=== PATIENT | female | born 1970 | race American Indian/Alaskan Native ===

== ENCOUNTER 2020-04-12 11:16 | Outpatient (CLI) | payer OTHER ==
--- NOTE | 2020-04-12 12:16 | XRay Report ---
ABDOMEN 1 VIEW(S) INDICATION / CLINICAL INFORMATION: ACUTE ABDOMEN. COMPARISON: None available. FINDINGS: TUBES / LINES: None. BOWEL GAS PATTERN: No significant abnormality. FREE AIR / EXTRALUMINAL GAS: None seen. ADDITIONAL FINDINGS: Scoliosis IMPRESSION: No significant abnormality. Signer Name: Connor Culp Jr, MD Signed: 04/12/2020 12:11 PM Workstation Name: [id number]
== END 2020-04-12 11:17 | disposition home or self-care (01) ==
LOC: XRAY 11:16
PROVIDERS: ATTEND Family Medicine
DX: K59.00 Constipation, unspecified (principal); M41.86 Other forms of scoliosis, lumbar region
CPT/HCPCS: 74018

== ENCOUNTER 2020-05-21 06:27 | Day surgery (SDC) | payer OTHER ==
[2020-05-21] MEDS ORDERED: ASPIRIN EC 325 MG TAB PO NR (06:46)
[2020-05-21] MEDS ORDERED: SODIUM CHLORIDE 0.9% 500 ML 500 ML IV SCH (07:00)
[2020-05-21 07:19] LABS: Eosinophils % (Auto) 0.9 % (0.0-4.3); Hemoglobin 13.5 gm/dl (10.1-14.3); Lymphocytes # (Auto) 1.4 K/mm3 (1.2-5.4); Lymphocytes % (Auto) 36.4 % (13.4-35.0); Mean Corpuscular HGB Conc 33 % (30-34); Mean Corpuscular Volume 76 fl (79-97); Monocytes # (Auto) 0.4 K/mm3 (0.0-0.8); Monocytes % (Auto) 9.7 % (0.0-7.3); Platelet Count 179 K/mm3 (140-440); Red Blood Count 5.44 M/mm3 (3.65-5.03); Red Cell Distribution Width 15.1 % (13.2-15.2)
[2020-05-21 07:29] LABS: Blood Urea Nitrogen 20 mg/dL (7-17); Calcium 9.3 mg/dL (8.4-10.2); Hemolysis Index 0; INR 1.05 (0.87-1.13)
[2020-05-21 07:30] LABS: Partial Thromboplastin Time 33.4 Sec. (24.2-36.6)
[2020-05-21 07:36] LABS: BUN/Creatinine Ratio 29
[2020-05-21] MEDS ORDERED: HEPARIN/NS 5000 UNIT/500ML 1,000 ML IR ONE (08:17)
[2020-05-21] MEDS ORDERED: NITROGLYCERIN SYRINGE 0 ML ONE (08:17)
[2020-05-21] MEDS: MIDAZOLAM 2 MG/2 ML INJ ONE ×2 (08:45→08:53)
[2020-05-21] MEDS: fentaNYL 100 MCG/2 ML INJ ONE ×2 (08:45→08:53)
[2020-05-21] MEDS: HEPARIN 10,000 UNITS/10 ML VIAL ONE ×2 (08:46→08:59)
[2020-05-21] MEDS: LIDOCAINE (2%) 20 MG/1 ML VIAL 20 ML MDV INFILTRATI ONE ×2 (08:46→08:58)
[2020-05-21] MEDS: VERAPAMIL 5 MG/2 ML INJ ONE ×2 (08:47→08:59)
--- NOTE | 2020-05-21 09:39 | Cardiac Catherization Report ---
INDICATION FOR PROCEDURE: The patient is a 50-year-old female with history of hypertension and shortness of breath with exertion, was noted to have abnormal stress EKG with being positive for ischemia on the stress EKG, with symptoms of shortness of breath and abnormal stress EKG. She was scheduled for cardiac catheterization for definitive diagnosis and treatment. The patient is aware of the procedure, potential complications and alternatives of therapy available. DESCRIPTION OF PROCEDURE: The patient was brought to the catheterization laboratory in a fasting condition. The patient is aware of the procedure, potential complications and alternatives of therapy available. The patient was evaluated for moderate sedation and was noted to be appropriate candidate for moderate sedation. The patient received IV Versed and fentanyl. Subsequently, sterile drapes were applied and the patient was prepared in standard fashion. Local anesthesia was given in the right wrist area and right radial artery puncture was made using 21-gauge arterial puncture needle. Subsequently, 5-Czech slender sheath was introduced. The patient received IV heparin and intra-arterial verapamil. Using JL3.5 diagnostic catheter, angiograms of the left coronary artery were obtained using fluoroscopy. Subsequently, JR4 catheter was used to obtain the angiograms of the right coronary artery and left ventriculogram done in BATES projection using hand injection. At the end of the procedure, catheter and sheath were removed. Good hemostasis was achieved with application of radial band. The patient tolerated the procedure well. The patient was monitored throughout the procedure with pulse oximetry, EKG monitoring and hemodynamic monitoring. The patient at the end of the procedure is communicating normally, able to move all the extremities without any focal deficits. Breathing normally. The patient's sedation started at 8:53 a.m. and monitoring ended at 9:13 a.m. Following findings were noted. HEMODYNAMICS: 1. Opening aortic pressure 149/86. Left ventricular pressure 185/23. No gradient across the aortic valve. Estimated ejection fraction 55%. 2. Left ventriculogram done in BATES projection showed normal-sized left ventricle with normal contractility. End-diastolic and systolic volumes are normal. Elevated end-diastolic pressure of 23 mmHg noted. 3. Right coronary artery dominant vessel arises normally from right coronary cusp, angiographically smooth and normal. 4. Left coronary artery arises normally from left coronary cusp, left coronary angiography showed normal origin of the left coronary artery. Left main, LAD and its branches and RCA branch are angiographically smooth and normal. FINAL IMPRESSION: 1. Normal-sized left ventricle with normal contractility. End-diastolic pressure is mildly elevated up to 23 mmHg. 2. Normal coronary anatomy was noted with RCA being dominant vessel. The patient tolerated the procedure well. No untoward complications noted. At this time, the patient has normal coronary anatomy angiographically. We will continue risk factor modification. I explained the findings to the patient. She understands. The patient was transferred to the room in stable condition. JOB# [id number] FAY/NTS
--- NOTE | 2020-05-21 11:41 | Short Stay Summary ---
Short Stay Documentation Date of service: 05/21/20 - History H&P: obtained from office - Allergies and Medications Current Medications: Allergies No Known Allergies Allergy (Verified 05/21/20 06:45) Home Medications Medication Instructions Recorded Confirmed Last Taken Type Aspirin EC [Ecotrin] 325 mg PO DAILY 05/21/20 05/21/20 05/21/20 History 325 mg carvediloL [Coreg] 12.5 mg PO BID 05/21/20 05/21/20 05/20/20 History 12.5mg hydroCHLOROthiazide [HCTZ] 12.5 mg PO DAILY 05/21/20 05/21/20 05/20/20 History 12.5mg Active Medications Sodium Chloride (Nacl 0.9% 500 Ml) 500 mls @ 50 mls/hr IV DIRECT SHANE Stop: 05/21/20 16:59 Last Admin: 05/21/20 08:19 Dose: 50 mls/hr Documented by: - Brief post op/procedure progress note Date of procedure: 05/21/20 Pre-op diagnosis: abnormal stress test Post-op diagnosis: other (normal coronaries) Procedure: [facility] - see dictated cath report Anesthesia: local Estimated blood loss: none Condition: stable - Disposition Condition at discharge: Good Disposition: [id number] TO HOME OR SELFCARE - Discharge Diagnoses (1) Normal coronary arteries Status: Chronic (2) HTN (hypertension) Status: Chronic Short Stay Discharge Plan Activity: advance as tolerated Diet: low fat, low cholesterol, low salt Wound: open to air, keep clean and dry, per your surgeon's advice Follow up with: DONALD APONTE MD [Primary Care Provider] - 7 Days KIMMIE HUMPHRIES MD [Staff Physician] - 7 Days Forms: CardCath PCI D/C Instructions
[2020-05-21 12:16] VITALS: BP 119/78
== END 2020-05-21 12:45 | disposition home or self-care (01) ==
LOC: CATHLABREC 06:27
PROVIDERS: ATTEND Internal Medicine
DX: R06.02 Shortness of breath (principal); R94.39 Abnormal result of other cardiovascular function study; R94.31 Abnormal electrocardiogram [ECG] [EKG]; I10 Essential (primary) hypertension; Z79.899 Other long term (current) drug therapy; Z79.82 Long term (current) use of aspirin; Z98.890 Other specified postprocedural states
CPT/HCPCS: 36415; 80048; 85025; 85610; 85730; 93005; 93458; 99156; C1887; C1894; J1644; J2250; J3010; J7040; Q9967